=== PATIENT | male | born 1985 | race Two or more races ===

== ENCOUNTER 2017-06-17 12:22 | Emergency (ER) | payer OTHER ==
[~2017-06-17] VITALS: Ht 165.1 cm; Wt 56.0 kg
[2017-06-17 12:35] VITALS: BP 118/71
[2017-06-17] MEDS ORDERED: NALOXONE 0.4 MG/ML, 1ML ONE ×2 (12:49→13:18)
[2017-06-17] MEDS ORDERED: PLEASE ENTER ALLERGIES MC SCH ×2 (13:00)
[2017-06-17] MEDS ORDERED: MORPHINE SULFATE 4 MG/ML, 1ML IVPush PRN (13:00)
[2017-06-17] MEDS ORDERED: SODIUM CHLORIDE 0.9% 1,000ML IVBOLUS ONE (13:00)
[2017-06-17] MEDS ORDERED: SODIUM CHLORIDE FLUSH 10ML SYR IVF ONE (13:00)
[2017-06-17] MEDS ORDERED: ONDANSETRON 2MG/ML, 2ML IVPush ONE (13:00)
[2017-06-17] MEDS ORDERED: NALOXONE 0.4 MG/ML, 1ML IVPush ONE (13:00)
[2017-06-17 13:30] LABS: HEMATOCRIT 44.4 % (39.2-51.8); HEMOGLOBIN 14.4 g/dL (13.7-18.0); WHITE BLOOD COUNT 11.2 x10^3/uL (3.4-10)
[2017-06-17 13:39] LABS: ASPARTATE AMINO TRANSFERASE 41 U/L (15-37); BLOOD UREA NITROGEN 6 mg/dL (7-18)
[2017-06-17 14:06] LABS: IS PT STATUS REG ER OR PRE ER? YES
== END 2017-06-17 13:33 | disposition left against medical advice (07) ==
LOC: ED 13:27
DX: T40.2X1A Poisoning by other opioids, accidental (unintentional), initial encounter (principal); F17.200 Nicotine dependence, unspecified, uncomplicated; Z88.8 Allergy status to other drugs, medicaments and biological substances; Y92.89 Other specified places as the place of occurrence of the external cause
CPT/HCPCS: 36415; 71010; 80053; 83690; 84484; 85025; 85610; 85730; 93005; 96374; 99285; J2310